=== PATIENT | female | born 1970 | race Asian ===

== ENCOUNTER 2016-10-21 02:13 | Emergency (ER) | payer MEDICAID ==
[~2016-10-21] VITALS: Ht 160 cm; Wt 86.4 kg
[~2016-10-21 02:13] MED LIST: OXYC-302 PO
[2016-10-21 02:19] VITALS: BP 134/85
[2016-10-21] MEDS ORDERED: HYDROmorphone 1 MG/ML, 1ML ONE (03:20)
[2016-10-21] MEDS ORDERED: MAALOX/HYOSCYAMINE/LIDOCAINE 45 ML BTL ONE (03:21)
[2016-10-21] MEDS ORDERED: DIAZEPAM 5 MG TABLET ONE (03:21)
[2016-10-21 03:29] LABS: ASPARTATE AMINO TRANSFERASE 13 U/L (15-37); BLOOD UREA NITROGEN 10 mg/dL (7-18)
[2016-10-21] MEDS ORDERED: MAALOX/HYOSCYAMINE/LIDOCAINE 45 ML BTL PO ONE (03:30)
[2016-10-21] MEDS ORDERED: HYDROmorphone 1 MG/ML, 1ML IM ONE (03:30)
[2016-10-21] MEDS ORDERED: DIAZEPAM 5 MG TABLET PO ONE (03:30)
[2016-10-21] MEDS ORDERED: DEXAMETHASONE 4 MG/ML, 5ML ONE (03:59)
[2016-10-21] MEDS ORDERED: DEXAMETHASONE 4 MG/ML, 1ML IM ONE (04:00)
== END 2016-10-21 04:26 | disposition home or self-care (01) ==
LOC: ED 03:48
DX: K29.00 Acute gastritis without bleeding (principal); K21.9 Gastro-esophageal reflux disease without esophagitis
CPT/HCPCS: 29125; 36415; 73110; 80053; 81003; 83690; 84703; 85025; 93005; 96372; 99285; J1100; J1170

== ENCOUNTER 2017-06-05 11:24 | Emergency (ER) | payer MEDICAID ==
[~2017-06-05] VITALS: Ht 157.5 cm; Wt 85.1 kg
[2017-06-05 11:30] VITALS: BP 152/88
[2017-06-05] MEDS ORDERED: ALBUTEROL SULFATE 2.5 MG/3 ML ONE (12:22)
[2017-06-05] MEDS ORDERED: ALBUTEROL SULFATE 2.5 MG/3 ML NPPB ONE (12:30)
== END 2017-06-05 13:12 | disposition home or self-care (01) ==
LOC: ED 13:05
DX: J00 Acute nasopharyngitis [common cold] (principal); B97.89 Other viral agents as the cause of diseases classified elsewhere
CPT/HCPCS: 71046; 93005; 94640; 99284; J7512; J7613

== ENCOUNTER 2017-10-20 14:30 | Emergency (ER) | payer MEDICAID ==
[~2017-10-20] VITALS: Ht 157.5 cm; Wt 86.6 kg
[2017-10-20 15:03] VITALS: BP 133/85
[2017-10-20 15:46] LABS: ANION GAP 7 mmol/L (5-15); CHLORIDE 105 mmol/L (98-107)
[2017-10-20 15:47] LABS: ALANINE AMINOTRANSFERASE 41 U/L (12-78); ALBUMIN 3.4 g/dL (3.4-5.0)
[2017-10-20 15:51] LABS: ALKALINE PHOSPHATASE 103 U/L (45-117); BILIRUBIN,TOTAL 0.4 mg/dL (0.2-1.0); TOTAL PROTEIN 7.7 g/dL (6.4-8.2)
[2017-10-20 15:58] LABS: BASOPHILS # (AUTO) 0.02 x10^3/uL (0-0.1); BASOPHILS % (AUTO) 0 % (0-1); EOSINOPHILS # (AUTO) 0.26 x10^3/uL (0-0.4); EOSINOPHILS % (AUTO) 3 % (1-7); LYMPHOCYTES # (AUTO) 1.97 x10^3/uL (1-3.4); LYMPHOCYTES % (AUTO) 20 % (22-44); MD NO; MEAN CORPUSCULAR HEMOGLOBIN 32.9 pg (27.0-34.8); MEAN CORPUSCULAR HGB CONC 34.1 g/dL (32.4-35.8); MEAN CORPUSCULAR VOLUME 96.5 fL (80-100); MEAN PLATELET VOLUME 7.9 fL (7.4-10.4); MONOCYTES # (AUTO) 0.37 x10^3/uL (0.2-0.8); MONOCYTES % (AUTO) 4 % (2-9); NEUTROPHILS # (AUTO) 7.14 x10^3/uL (1.8-6.8); NEUTROPHILS % (AUTO) 73 % (42-75); PLATELET COUNT 267 x10^3/uL (130-400); RED BLOOD COUNT 4.15 x10^6/uL (3.82-5.3); RED CELL DISTRIBUTION WIDTH 13.5 % (9.6-15.2)
[2017-10-20 16:00] LABS: MICROSCOPIC NOT IND
[2017-10-20 16:13] LABS: CULTURE INDICATED? NO
== END 2017-10-20 15:02 | disposition home or self-care (01) ==
LOC: ED 14:56
DX: M51.26 Other intervertebral disc displacement, lumbar region (principal); Z90.49 Acquired absence of other specified parts of digestive tract
CPT/HCPCS: 36415; 74176; 80053; 81003; 83690; 84703; 85025; 99285

== ENCOUNTER 2017-12-14 15:35 | Emergency (ER) | payer MEDICAID ==
[~2017-12-14] VITALS: Ht 165.1 cm; Wt 85.5 kg
[2017-12-14 15:39] VITALS: BP 133/85
[2017-12-14] MEDS ORDERED: KETOROLAC 30 MG/1 ML ONE (17:17)
[2017-12-14] MEDS ORDERED: OXYcodone/APAP 5/325MG TABLET ONE (17:17)
[2017-12-14] MEDS ORDERED: ONDANSETRON ODT 4 MG ONE (17:18)
[2017-12-14] MEDS ORDERED: KETOROLAC 30 MG/1 ML IM ONE (17:30)
[2017-12-14] MEDS ORDERED: ONDANSETRON ODT 4 MG PO ONE (17:30)
[2017-12-14] MEDS ORDERED: OXYcodone/APAP 5/325MG TABLET PO ONE (17:30)
== END 2017-12-14 17:33 | disposition home or self-care (01) ==
LOC: ED 17:15
DX: S76.012A Strain of muscle, fascia and tendon of left hip, initial encounter (principal); G56.03 Carpal tunnel syndrome, bilateral upper limbs; M79.605 Pain in left leg; X50.3XXA Overexertion from repetitive movements, initial encounter; Y93.89 Activity, other specified; Y92.89 Other specified places as the place of occurrence of the external cause; Y99.0 Civilian activity done for income or pay
CPT/HCPCS: 29260; 73110; 73502; 93971; 96372; 99284; J1885; Q0162

== ENCOUNTER 2017-12-28 16:52 | Emergency (ER) | payer MEDICAID ==
[~2017-12-28] VITALS: Ht 157.5 cm; Wt 87.0 kg
[2017-12-28] MEDS ORDERED: ONDANSETRON ODT 4 MG ONE (17:20)
[2017-12-28] MEDS ORDERED: MORPHINE SULFATE 4 MG/ML, 1ML ONE (17:21)
[2017-12-28] MEDS ORDERED: SODIUM CHLORIDE FLUSH 10ML SYR IVF ONE (17:30)
[2017-12-28] MEDS ORDERED: ONDANSETRON ODT 4 MG PO ONE (17:30)
[2017-12-28] MEDS ORDERED: MORPHINE SULFATE 4 MG/ML, 1ML IVPush PRN (17:30)
[2017-12-28 18:55] VITALS: BP 105/63
== END 2017-12-28 18:57 | disposition home or self-care (01) ==
LOC: ED 17:55
DX: M25.512 Pain in left shoulder (principal); M25.511 Pain in right shoulder; M94.0 Chondrocostal junction syndrome [Tietze]; Z90.89 Acquired absence of other organs
CPT/HCPCS: 71046; 93005; 96374; 99284; Q0162

== ENCOUNTER 2020-06-18 09:40 | Emergency (ER) | payer SELFPAY ==
[~2020-06-18] VITALS: Ht 157.5 cm; Wt 79.0 kg
[~2020-06-18 09:40] MED LIST changes: -OXYC-302 PO; +OXYC1TAB14 PO
--- NOTE | 2020-06-18 09:54 | NUR ---
Pt ambulatory to room and changing into gown now.
[2020-06-18] MEDS ORDERED: MORPHINE SULFATE 4 MG/ML, 1ML ONE ×2 (10:24→11:26)
[2020-06-18] MEDS ORDERED: ONDANSETRON 2MG/ML, 2ML ONE (10:24)
[2020-06-18] MEDS: MORPHINE SULFATE 4 MG/ML, 1ML IVPush PRN ×2 (10:28→11:27)
[2020-06-18] MEDS ORDERED: SODIUM CHLORIDE 0.9% 1,000ML IVBOLUS ONE (10:30)
[2020-06-18] MEDS ORDERED: ONDANSETRON 2MG/ML, 2ML IVPush ONE (10:30)
[2020-06-18 10:31] LABS: BASOPHILS % (AUTO) 1 % (0-1); EOSINOPHILS % (AUTO) 1 % (1-7); LYMPHOCYTES % (AUTO) 12 % (22-44); MEAN CORPUSCULAR HEMOGLOBIN 32.6 pg (27.0-34.8); MEAN CORPUSCULAR HGB CONC 33.5 g/dL (32.4-35.8); MEAN PLATELET VOLUME 7.9 fL (7.4-10.4); MONOCYTES % (AUTO) 4 % (2-9); NEUTROPHILS % (AUTO) 83 % (42-75); PLATELET COUNT 230 x10^3/uL (130-400); RED BLOOD COUNT 3.98 x10^6/uL (3.82-5.3); RED CELL DISTRIBUTION WIDTH 13.7 % (9.6-15.2)
--- NOTE | 2020-06-18 10:31 | NUR ---
Pt medicated for pain and NS bolus started. Awaiting CT scan now
[2020-06-18 10:32] LABS: MD NO
[2020-06-18 10:41] LABS: ALBUMIN 3.6 g/dL (3.4-5.0); ANION GAP 7 mmol/L (5-15); CALCIUM 9.2 mg/dL (8.5-10.1); CHLORIDE 107 mmol/L (98-107); CREATININE 0.62 mg/dL (0.55-1.02)
[2020-06-18] MEDS ORDERED: METH2.5T PO (10:45)
--- NOTE | 2020-06-18 11:00 | NUR ---
Pain decreased from 10/10 to 4/10 after medical insurance coder per pt on reassessment. NS bolus still infusing without issue.
--- NOTE | 2020-06-18 11:08 | NUR ---
Pt to CT via [facility] now.
--- NOTE | 2020-06-18 11:23 | NUR ---
Pt back from CT. VS reassessed and IV saline locked.
[2020-06-18] MEDS ORDERED: OMNIPAQUE 350 MG/ML, 75ML BOTTLE ONE (11:26)
--- NOTE | 2020-06-18 11:30 | NUR ---
Pt remedicated with second dose of Morphine for severe pain upon return.
--- NOTE | 2020-06-18 11:58 | NUR ---
Pt appears more comfortable since pain emt intermediate and reports good effect with pain down from 10/10 to 3/10 now.
[2020-06-18] MEDS ORDERED: AMPICILLIN/SULBACTAM 3 GM in SODIUM CHLORIDE 0.9% 100 ML IV ONE (12:00)
[2020-06-18] MEDS ORDERED: DEXAMETHASONE 4 MG/ML, 1ML IVPush ONE (12:00)
[2020-06-18] MEDS ORDERED: DEXAMETHASONE 4 MG/ML, 5ML ONE (12:04)
--- NOTE | 2020-06-18 12:11 | NUR ---
IV abx and Decadron started now. PA at bedside to discuss at-home pain medication plan and return to ED tomorrow first thing in the A.M. for reassessment.
[2020-06-18 12:55] VITALS: BP 126/58
== END 2020-06-18 12:57 | disposition home or self-care (01) ==
LOC: ED 10:11
DX: H66.002 Acute suppurative otitis media without spontaneous rupture of ear drum, left ear (principal); L03.211 Cellulitis of face; J32.9 Chronic sinusitis, unspecified; H70.92 Unspecified mastoiditis, left ear; K11.20 Sialoadenitis, unspecified; K11.21 Acute sialoadenitis
CPT/HCPCS: 36415; 70487; 80048; 82040; 85025; 87040; 96361; 96365; 96375; 96376; 99285; J0295; J1100; J2270; J2405; J7030; Q9967

== ENCOUNTER 2020-06-19 07:19 | Emergency (ER) | payer SELFPAY ==
[~2020-06-19] VITALS: Ht 157.5 cm; Wt 80.9 kg
[~2020-06-19 07:19] MED LIST changes: +METH2.5T PO
--- NOTE | 2020-06-19 07:30 | NUR ---
PT AMBULATORY TO ROOM, UPRIGHT/STEADY GAIT. SPOUSE AT BS. NAD NOTED
[2020-06-19] MEDS ORDERED: AMPICILLIN/SULBACTAM 3 GM in SODIUM CHLORIDE 0.9% 100 ML IV ONE (08:00)
[2020-06-19 08:47] VITALS: BP 102/55
--- NOTE | 2020-06-19 08:48 | NUR ---
Patient/Caregiver given discharge instructions and they have confirmed that they understand the instructions. Patient ambulatory with steady gait.
== END 2020-06-19 08:49 | disposition home or self-care (01) ==
LOC: ED 07:34
DX: H70.002 Acute mastoiditis without complications, left ear (principal); H66.002 Acute suppurative otitis media without spontaneous rupture of ear drum, left ear; K11.21 Acute sialoadenitis; J01.90 Acute sinusitis, unspecified; R22.0 Localized swelling, mass and lump, head; Z90.89 Acquired absence of other organs
CPT/HCPCS: 96365; 99284; J0295